=== PATIENT | female | born 1960 | race Caucasian/White ===

== ENCOUNTER → 2016-06-22 | Outpatient (CLI) | payer BC ==
[2016-06-22 08:33] LABS: HEMOGLOBIN 12.6 gm/dl (12.3-15.3); RED BLOOD COUNT 3.99 M/UL (4.00-5.10); WHITE BLOOD COUNT 4.8 K/UL (4.5-11.0)
[2016-06-22 08:54] LABS: BUN/CREATININE RATIO 21 (0-10)
== END ==
LOC: LAB 07:41
PROVIDERS: Nurse Practitioner Family
DX: Z00.00 Encounter for general adult medical examination without abnormal findings (principal); J30.9 Allergic rhinitis, unspecified; K59.00 Constipation, unspecified; R35.0 Frequency of micturition; R53.83 Other fatigue; Z13.220 Encounter for screening for lipoid disorders; E55.9 Vitamin D deficiency, unspecified
CPT/HCPCS: 36415; 80053; 80061; 82607; 84439; 84443; 85025

== ENCOUNTER → 2020-10-19 | Outpatient (CLI) | payer BC ==
[~2020-10-19] MED LIST: DIGESTIVE PROB1 EACH PO; ESTRADIOL PO; LEXAPRO10 MG PO; MOBIC15 MG PO; OXYBUTYNIN CHLOR5 MG PO; ZANAFLEX4 MG PO; [UNRECOGNIZED DRUG - OTHER] PO
[2020-10-19 08:22] LABS: HEMOGLOBIN 12.8 gm/dl (12.3-15.3); RED BLOOD COUNT 4.07 M/UL (4.00-5.10); WHITE BLOOD COUNT 6.3 K/UL (4.5-11.0)
[2020-10-19 08:53] LABS: BUN/CREATININE RATIO 20 (0-10)
== END ==
LOC: LAB 07:46
PROVIDERS: Nurse Practitioner Family
DX: Z00.00 Encounter for general adult medical examination without abnormal findings (principal); R73.9 Hyperglycemia, unspecified; D49.2 Neoplasm of unspecified behavior of bone, soft tissue, and skin; R35.0 Frequency of micturition; R31.9 Hematuria, unspecified; E55.9 Vitamin D deficiency, unspecified; E53.8 Deficiency of other specified B group vitamins
CPT/HCPCS: 36415; 80053; 80061; 81001; 82607; 84439; 84443; 85025

== ENCOUNTER → 2020-11-12 | Outpatient (CLI) | payer BC | LOC: MRI 08:34 | DX: D49.2 Neoplasm of unspecified behavior of bone, soft tissue, and skin (principal); M51.36 Other intervertebral disc degeneration, lumbar region; M51.37 Other intervertebral disc degeneration, lumbosacral region | CPT/HCPCS: 72148 ==

== ENCOUNTER → 2020-11-19 | Outpatient (CLI) | payer BC | LOC: MRI 13:53 | DX: D49.2 Neoplasm of unspecified behavior of bone, soft tissue, and skin (principal); M51.36 Other intervertebral disc degeneration, lumbar region | CPT/HCPCS: 72158; A9577 ==

== ENCOUNTER → 2021-03-07 | Outpatient (CLI) | payer BC ==
[2021-03-07 08:05] LABS: HEMOGLOBIN 12.7 gm/dl (12.3-15.3); RED BLOOD COUNT 3.99 M/UL (4.00-5.10)
[2021-03-08 08:15] LABS: A/G RATIO 2.9 (1.2-2.2); ALKALINE PHOSPHATASE, S 56 IU/L (44-121); ALT (SGPT) 26 IU/L (0-32); AST (SGOT) 16 IU/L (0-40); BILIRUBIN, TOTAL 0.2 mg/dL (0.0-1.2); BUN 17 mg/dL (6-24); BUN/CREATININE RATIO 18 (9-23); CALCIUM, SERUM 9.4 mg/dL (8.7-10.2); CARBON DIOXIDE, TOTAL 18 mmol/L (20-29); CHLORIDE, SERUM 105 mmol/L (96-106); CHOLESTEROL, TOTAL 198 mg/dL (100-199); CREATININE, SERUM 0.92 mg/dL (0.57-1.00); EGFR IF AFRICN AM 79 (>59); EGFR IF NONAFRICN AM 69 (>59); ESTIM. AVG GLU (EAG) 114 mg/dL (.); FERRITIN 115 ng/mL (15-150); GLOBULIN, TOTAL 1.7 g/dL (1.5-4.5); GLUCOSE, SERUM 109 mg/dL (65-99); HDL CHOLESTEROL 49 mg/dL (>39); HEMOGLOBIN A1C 5.6 % (4.8-5.6); LDL CHOLESTEROL CALC 114 mg/dL (0-99); LDL/HDL RATIO 2.3 ratio (0.0-3.2); POTASSIUM, SERUM 4.4 mmol/L (3.5-5.2); PROTEIN, TOTAL, SERUM 6.6 g/dL (6.0-8.5); SODIUM, SERUM 138 mmol/L (134-144); TRIGLYCERIDES 200 mg/dL (0-149); VITAMIN D, 25-HYDROXY 34.3 ng/mL (30.0-100.0)
[2021-03-08 10:15] LABS: CREATININE, URINE 190.6 mg/dL (Not Estab.)
== END ==
LOC: LAB 07:32
PROVIDERS: Nurse Practitioner Family
DX: Z00.00 Encounter for general adult medical examination without abnormal findings (principal); R53.83 Other fatigue; R73.9 Hyperglycemia, unspecified; M43.10 Spondylolisthesis, site unspecified; K59.00 Constipation, unspecified; M54.16 Radiculopathy, lumbar region; E53.8 Deficiency of other specified B group vitamins; E78.5 Hyperlipidemia, unspecified
CPT/HCPCS: 36415; 80053; 80061; 82043; 82570; 82607; 82728; 83036; 84439; 84443; 85025